=== PATIENT | female | born 1965 | race Caucasian/White ===

== ENCOUNTER 2019-05-12 07:11 | Inpatient (IN) ==
[2019-05-12] MEDS ORDERED: PIPERACILLIN/TAZOBACTAM 3,375 MG in SODIUM CHLORIDE 0.9% 100 ML IV STA (07:46)
[2019-05-12] MEDS ORDERED: SODIUM CHLORIDE 0.9% 1,000 ML IV STA (07:46)
[2019-05-12 08:14] LABS: Basophils # 0.1 10*3/uL (0.0-0.2); Basophils % 0.3 % (0.0-0.8); Hematocrit 42.4 VOL% (35.7-47.0); Hemoglobin 14.1 GM/DL (12.0-16.0); Immature Granulocytes % 0.8 %; Immature Granulocytes Absolute 0.25 #; Lymphocytes # 2.9 10*3/uL (1.4-4.0); Lymphocytes % 9.5 % (21.3-54.2); Mean Corpuscular HGB Conc 33.3 GM/DL (32-36); Mean Platelet Volume 10.5 FL (9.6-12.0); Monocytes % 6.2 % (1.7-12.7); Neutrophils % 83.2 % (38.7-73.9); Platelet Count 242 T/CUMM (130-400); Red Blood Count 4.61 MC/CUMM (3.8-5.5); Red Cell Distribution Width 14.1 % (9.3-17.3)
[2019-05-12 08:42] LABS: Band Neutrophils 4 % (0-10); Hypochromasia 1+; Lymphocytes 7 % (20-55); Segmented Neutrophils 81 % (50-85); Total Cells Counted 100
[2019-05-12 08:43] LABS: Platelet Estimate Normal
[2019-05-12] MEDS ORDERED: ACETAMINOPHEN 500 MG TABLET PO STA (09:08)
[2019-05-12 09:21] LABS: Sedimentation Rate-Westergren 34 MM/HR (0-30)
[2019-05-12] MEDS ORDERED: ONDANSETRON 4 MG/2 ML VIAL IV PRN (10:13)
[2019-05-12] MEDS ORDERED: ACETAMINOPHEN 325 MG TABLET PO PRN (10:13)
[2019-05-12] MEDS ORDERED: diphenhydrAMINE 50 MG/1 ML VIAL IV PRN (10:16)
[2019-05-12] MEDS: SODIUM CHLORIDE 0.9% 1,000 ML IV SCH ×2 (12:35→20:36)
[2019-05-12] MEDS: cefTRIAXone 2,000 MG in SYRINGE 1 EACH IV SCH (13:36)
[2019-05-13] MEDS: SODIUM CHLORIDE 0.9% 1,000 ML IV SCH (04:19)
[2019-05-13 07:24] LABS: Basophils # 0.1 10*3/uL (0.0-0.2); Basophils % 0.4 % (0.0-0.8); Eosinophils # 0.2 10*3/uL (0.0-0.87); Eosinophils % 1.2 % (0.00-10.9); Hematocrit 33.5 VOL% (35.7-47.0); Immature Granulocytes % 0.8 %; Lymphocytes # 3.1 10*3/uL (1.4-4.0); Lymphocytes % 23.4 % (21.3-54.2); Mean Corpuscular HGB Conc 33.1 GM/DL (32-36); Mean Platelet Volume 11.5 FL (9.6-12.0); Monocytes % 8.1 % (1.7-12.7); Neutrophils % 66.1 % (38.7-73.9); Platelet Count 212 T/CUMM (130-400); Red Cell Distribution Width 14.4 % (9.3-17.3)
[2019-05-13 07:26] LABS: Hemoglobin 11.1 GM/DL (12.0-16.0); Red Blood Count 3.64 MC/CUMM (3.8-5.5); White Blood Count 13.1 T/CUMM (4-12)
[2019-05-13 07:40] LABS: Calcium 8.2 MG/DL (8.5-10.1); Osmolality,Calculated 275.4 MOS/KG (273-304)
[2019-05-13 07:42] LABS: Microcytosis Slight; Platelet Estimate Normal
[2019-05-13 07:43] LABS: Hypochromasia 1+
[2019-05-13 08:32] VITALS: BP 110/66
[2019-05-13] MEDS ORDERED: PANTOPRAZOLE 40 MG TABLET PO SCH (09:00)
[2019-05-13] MEDS: cefTRIAXone 2,000 MG in SYRINGE 1 EACH IV SCH (09:24)
== END 2019-05-13 10:50 | disposition home or self-care (01) | DRG 603 ==
LOC: N.ED 07:11 → N.EDINP 10:14 → N.3E 10:41
PROVIDERS: ADMIT Emergency Medicine; ATTEND Emergency Medicine